=== PATIENT | female | born 1985 | race American Indian/Alaskan Native ===

== ENCOUNTER 2017-07-16 18:53 | Emergency (ER) | payer MEDICAID ==
[2017-07-16 19:01] VITALS: BP 149/84; PULSE 92; RESP 18; TEMP 98.3; O2SAT 100
[2017-07-16 19:49] LABS: BASO % 0.4 % (0.0-2.0); EOS % 0.5 % (0.0-4.0); HEMOGLOBIN 12.9 g/dL (12.0-16.0); LYMPH # 1.5 K/uL (1.0-4.3); LYMPH % 17.2 % (20.0-40.0); MEAN CELL VOLUME 90.4 fl (81.0-99.0); MEAN CORPUSCULAR HEMOGLOBIN 30.1 pg (27.0-31.0); MEAN CORPUSCULAR HGB CONC 33.3 g/dL (33.0-37.0); MEAN PLATELET VOLUME 7.8 fl (7.2-11.7); MONO # 0.6 K/uL (0.0-0.8); MONO % 6.5 % (0.0-10.0); NEUT # 6.6 K/uL (1.8-7.0); NEUT % 75.4 % (50.0-75.0); NRBC % 0.1 % (0.0-0.0); RBC 4.29 Mil/uL (3.80-5.20); RED CELL DISTRIBUTION WIDTH 14.3 % (11.5-14.5); WHITE BLOOD COUNT 8.7 K/uL (4.8-10.8)
[2017-07-16 19:50] LABS: SQUAMOUS EPITHIAL 2 /hpf (0-5); URINE BACTERIA FEW (<OCC); URINE BILIRUBIN NEGATIVE (NEGATIVE); URINE BLOOD LARGE (NEGATIVE); URINE CLARITY CLOUDY (Clear); URINE COLOR YELLOW (YELLOW); URINE GLUCOSE (UA) NEG (Normal); URINE LEUKOCYTE ESTERASE SMALL Leu/uL (Negative); URINE PROTEIN NEGATIVE (NEGATIVE); URINE UROBILINOGEN 0.2-1.0 mg/dL (0.2-1.0)
--- NOTE | 2017-07-16 20:31 | ED PDOC ---
HPI: Female Pain Time Seen by Provider: 07/16/17 19:16 Chief Complaint (Nursing): Female Genitourinary Chief Complaint (Provider): Vaginal Bleeding History Per: Patient History/Exam Limitations: no limitations Onset/Duration Of Symptoms: Days (x1 week) Current Symptoms Are (Timing): Still Present Additional Complaint(s): 31 y/o female with no significant pmhx, who presents to the ED for evaluation of vaginal bleeding in x1 week. Patient states she has been bleeding and spotting for the past week with associated abdominal cramps. Describes bleeding as light spotting and states she goes through 2 pads a day, but they are not saturated. States she was seen at [place] [facility] on 07/12/17 and told she had fibroids. A gestation sac was identified, but no cardiac activity was found. 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 . PMD: Provider TBD Past Medical History Reviewed: Historical Data, Nursing Documentation, Vital Signs Vital Signs: Last Vital Signs Temp 98.3 F 07/16/17 18:58 Pulse 92 H 07/16/17 18:58 Resp 18 07/16/17 18:58 BP 149/84 07/16/17 18:58 Pulse Ox 100 07/16/17 18:58 - Medical History PMH: No Chronic Diseases - Surgical History Surgical History: No Surg Hx - Family History Family History: States: Unknown Family Hx - Social History Current smoker - smoking cessation education provided: No Alcohol: None Drugs: Denies - Allergies Allergies/Adverse Reactions: Allergies Allergy/AdvReac Type Severity Reaction Status Date / Time No Known Allergies Allergy Verified 07/16/17 18:57 Review of Systems Gastrointestinal: Positive for: Abdominal Pain Genitourinary Female: Positive for: Vaginal Bleeding Physical Exam - Reviewed Nursing Documentation Reviewed: Yes Vital Signs Reviewed: Yes - Physical Exam Appears: Positive for: Non-toxic, No Acute Distress Head Exam: Positive for: ATRAUMATIC, NORMAL INSPECTION, NORMOCEPHALIC Skin: Positive for: Normal Color, Warm, Dry. Negative for: Rash Eye Exam: Positive for: EOMI, Normal appearance, PERRL Neck: Positive for: Normal, Painless ROM, Supple Cardiovascular/Chest: Positive for: Regular Rate, Rhythm. Negative for: Murmur Respiratory: Positive for: Normal Breath Sounds. Negative for: Respiratory Distress Gastrointestinal/Abdominal: Positive for: Normal Exam, Bowel Sounds, Soft. Negative for: Tenderness Back: Positive for: Normal Inspection. Negative for: L CVA Tenderness, R CVA Tenderness Extremity: Positive for: Normal ROM. Negative for: Pedal Edema, Deformity Neurologic/Psych: Positive for: Alert, Oriented. Negative for: Motor/Sensory Deficits - Laboratory Results Result Diagrams: 07/16/17 19:40 - ECG O2 Sat by Pulse Oximetry: 100 (RA) Pulse Ox Interpretation: Normal Medical Decision Making Medical Decision Making: Time: 19:21 Initial Impression: 31 y/o female with vaginal bleeding in Initial Plan: --ABO/RH Type --Blood Type and Screen --Beta-HCG --Urine --Urine dipstick --CBC --Urinalysis --US OB Transvaginal --Reevaluation Time: 19:23 US OB TRANSVAGINAL FINDINGS: Gestation: There is a single gestational sac in the uterus. Gestational sac has mean diameter 11.3 mm. A pole is not visible. A yolk sac is not visible. Placenta/amniotic fluid: Cannot be adequately evaluated due to the early gestational age. Uterus/cervix: Uterus measures approximately 9.5 x 5.9 x 8 cm. There are multiple subserosal fibroids. There is a 3.5 x 3 x 3.5 cm fibroid on the right. There is a 4 x 3.7 x 2.8 cm fibroid, There is a 4.3 x 3.4 x 3 cm fibroid on the right. Ovaries: Right ovary measures approximately 3.4 x 3 by 2.9 cm. There is a corpus luteum the right ovary. There are small follicles. Left ovary could not be identified. Free fluid: No free fluid. IMPRESSION: Gestational sac in the uterus, 5 weeks 2 days by size, pole and yolk sac not visible; enlarged fibroid uterus; probable right ovarian corpus luteum Correlation with serial beta-hCG levels and follow up sonography advised to document development of a pole Time: 23:14 Labs reviewed and no clinically significant abnormalities were found. Patient was advised that she will be required to follow up with OB. [facility] to [facility] [employer] [facility]. Pelvic rest advised. Return precautions provided. Scribe Attestation: Documented by Etienne Reeves, acting as a scribe for Prabhjot Lai MD. Provider Scribe Attestation: All medical record entries made by the Scribe were at my direction and personally dictated by me. I have reviewed the chart and agree that the record accurately reflects my personal performance of the history, physical exam, medical decision making, and the department course for this patient. I have also personally directed, reviewed, and agree with the discharge instructions and disposition. Disposition - Clinical Impression Clinical Impression: Threatened miscarriage in early - Patient ED Disposition Is Patient to be Admitted: No Counseled Patient/Family Regarding: Studies Performed, Diagnosis, Need For Followup - Disposition [facility]errals[facility]] Disposition Time: 23:14 Condition: STABLE Instructions: Threatened Miscarriage Forms: [employer] (Japanese), [facility] ED School/Work Excuse
--- NOTE | 2017-07-16 21:51 | US ---
EXAM: US , Transvaginal EXAM DATE/TIME: 07/16/2017 7:23 PM CLINICAL HISTORY: 31 years old, female; Pain; complicated by abdominal or pelvic pain; Lower; First trimester; LMP: 05/27/17; ; Additional info: Preg vag bld TECHNIQUE: Real-time transvaginal obstetrical ultrasound of the maternal pelvis and a first trimester with image documentation. Transvaginal imaging was used for better evaluation of the fetus and adnexa. COMPARISON: There are no prior studies for comparison. FINDINGS: Gestation: There is a single gestational sac in the uterus. Gestational sac has mean diameter 11.3 mm. A pole is not visible. A yolk sac is not visible. Placenta/amniotic fluid: Cannot be adequately evaluated due to the early gestational age. Uterus/cervix: Uterus measures approximately 9.5 x 5.9 x 8 cm. There are multiple subserosal fibroids. There is a 3.5 x 3 x 3.5 cm fibroid on the right. There is a 4 x 3.7 x 2.8 cm fibroid, There is a 4.3 x 3.4 x 3 cm fibroid on the right. Ovaries: Right ovary measures approximately 3.4 x 3 by 2.9 cm. There is a corpus luteum the right ovary. There are small follicles. Left ovary could not be identified. Free fluid: No free fluid. IMPRESSION: Gestational sac in the uterus, 5 weeks 2 days by size, pole and yolk sac not visible; enlarged fibroid uterus; probable right ovarian corpus luteum Correlation with serial beta-hCG levels and follow up sonography advised to document development of a pole
== END 2017-07-16 23:33 | disposition home or self-care (01) ==
LOC: H.ER 18:53
DX: O20.0 Threatened abortion (principal); D25.2 Subserosal leiomyoma of uterus

== ENCOUNTER 2017-07-23 16:25 | Emergency (ER) | payer MEDICAID ==
[2017-07-23 16:35] VITALS: BP 110/58; PULSE 88; RESP 16; O2SAT 100
[2017-07-23 16:53] VITALS: TEMP 98.4
--- NOTE | 2017-07-23 17:04 | ED PDOC ---
HPI: Female Pain Time Seen by Provider: 07/23/17 16:51 Chief Complaint (Nursing): Female Genitourinary Chief Complaint (Provider): Vaginal bleeding History Per: Patient History/Exam Limitations: no limitations Onset/Duration Of Symptoms: Days (x2 weeks) Current Symptoms Are (Timing): Still Present Quality Of Discomfort: Cramping Associated Symptoms: denies: Nausea, Vomiting, Diarrhea, Chest Pain, Urinary Symptoms, Other (SOB) Additional Complaint(s): Ashley Douglas is a 31 year old female, with no significant past medical history, who presents to the emergency department complaining of vaginal bleeding and crampy lower pelvic pain onset for x2 weeks. Patient states she is about x8 weeks . She was seen in the ED last week for threatened miscarriage. Patient scheduled an appointment with [facility] [facility], Dr. Guerra at [place], but was advised to come to the ED because the doctor is not able to see her soon. She denies any nausea, vomit, diarrhea, urinary symptoms, chest pain or shortness of breath. No further medical complaints. Took motrin for the pain. PMD: Shweta Guerra Abnormal Vaginal Bleeding: Yes Past Medical History Reviewed: Historical Data, Nursing Documentation, Vital Signs Vital Signs: Last Vital Signs Temp 98.4 F 07/23/17 16:30 Pulse 88 07/23/17 16:30 Resp 16 07/23/17 16:30 BP 110/58 L 07/23/17 16:30 Pulse Ox 100 07/23/17 16:30 - Medical History PMH: No Chronic Diseases - Surgical History Surgical History: No Surg Hx - Family History Family History: States: Unknown Family Hx - Allergies Allergies/Adverse Reactions: Allergies Allergy/AdvReac Type Severity Reaction Status Date / Time No Known Allergies Allergy Verified 07/23/17 16:30 Review of Systems ROS Statement: Except As Marked, All Systems Reviewed And Found Negative Cardiovascular: Negative for: Chest Pain Respiratory: Negative for: Shortness of Breath Gastrointestinal: Negative for: Nausea, Vomiting, Diarrhea Genitourinary Female: Positive for: Vaginal Bleeding, Pelvic Pain. Negative for : Dysuria, Frequency, Incontinence Physical Exam - Reviewed Nursing Documentation Reviewed: Yes Vital Signs Reviewed: Yes - Physical Exam Appears: Positive for: Well, Non-toxic, No Acute Distress Head Exam: Positive for: ATRAUMATIC, NORMAL INSPECTION, NORMOCEPHALIC Skin: Positive for: Normal Color, Warm, Dry Eye Exam: Positive for: Normal appearance Neck: Positive for: Painless ROM, Supple Cardiovascular/Chest: Positive for: Regular Rate, Rhythm. Negative for: Murmur Respiratory: Positive for: Normal Breath Sounds (clear to auscultation). Negative for: Respiratory Distress Gastrointestinal/Abdominal: Positive for: Soft, Tenderness (mild suprapubic) Back: Positive for: Normal Inspection. Negative for: L CVA Tenderness, R CVA Tenderness, Vertebral Tenderness Extremity: Positive for: Normal ROM (all extremities). Negative for: Tenderness , Deformity, Swelling Neurologic/Psych: Positive for: Alert, Oriented. Negative for: Motor/Sensory Deficits - Laboratory Results Result Diagrams: 07/23/17 17:09 07/23/17 17:09 Interpretation Of Abn Labs: 5920.4 bhcg and ast and alt mild elevation - ECG O2 Sat by Pulse Oximetry: 100 (RA) Pulse Ox Interpretation: Normal - CT Scan/US US Other Rad Studies (CT/US): Read By Radiologist Other Rad Interpretation: possible miscarriage - Progress ED Course And Treament: 1829: Stable. AAOx3. Pain controlled. Possible miscarriage. BHCG dropping but not in 1/2. Pt. to fu to trend levels and repeat US. Has obgyn. Medical Decision Making Medical Decision Making: Initial Impression: Vaginal bleeding in Initial Plan: --Beta-HCG, Quantitative --CMP --Urine dip --Urine --CBC w/ differential --OB Transvaginal [US] --Reevaluation Scribe Attestation: Documented by Ang Hale, acting as a scribe for Enoch Gao MD Provider Scribe Attestation: All medical record entries made by the Scribe were at my direction and personally dictated by me. I have reviewed the chart and agree that the record accurately reflects my personal performance of the history, physical exam, medical decision making, and the department course for this patient. I have also personally directed, reviewed, and agree with the discharge instructions and disposition. Disposition - Clinical Impression Clinical Impression: Threatened miscarriage, Elevated liver enzymes - Patient ED Disposition Is Patient to be Admitted: No Counseled Patient/Family Regarding: Studies Performed, Diagnosis, Need For Followup - Disposition [facility] - 07/24/17 [facility] [Outside] - 07/24/17 Disposition: Routine/Home Disposition Time: 18:31 Condition: STABLE Additional Instructions: Return if not better in 3 days. See the obgyn in 3 days for repeat blood work and ultrasound. You could be having a miscarriage. Your liver enzymes are slightly elevated. Follow up with your primary care doctor for further evaluation. Instructions: Threatened Miscarriage Forms: [employer] (Greek)
[2017-07-23 17:52] LABS: BASO # 0.1 K/uL (0.0-0.2); BASO % 1.1 % (0.0-2.0); EOS # 0.1 K/uL (0.0-0.7); EOS % 1.1 % (0.0-4.0); HEMOGLOBIN 11.7 g/dL (12.0-16.0); LYMPH % 28.2 % (20.0-40.0); MEAN CELL VOLUME 91.6 fl (81.0-99.0); MEAN CORPUSCULAR HEMOGLOBIN 30.2 pg (27.0-31.0); MEAN PLATELET VOLUME 8.2 fl (7.2-11.7); MONO # 0.9 K/uL (0.0-0.8); MONO % 8.8 % (0.0-10.0); NEUT # 6.4 K/uL (1.8-7.0); NEUT % 60.8 % (50.0-75.0); RBC 3.85 Mil/uL (3.80-5.20); RED CELL DISTRIBUTION WIDTH 14.1 % (11.5-14.5); WHITE BLOOD COUNT 10.5 K/uL (4.8-10.8)
[2017-07-23 18:02] LABS: ALB/GLOB RATIO 1.1 (1.0-2.1); ALT/SGPT 64 U/L (9-52); AST/SGOT 45 U/L (14-36); BLOOD UREA NITROGEN 12 mg/dl (7-17); CALCIUM 9.3 mg/dL (8.4-10.2); GFR AFRICAN-AMERICAN > 60; GFR NON-AFRICAN AMERICAN > 60
--- NOTE | 2017-07-23 18:16 | US ---
HISTORY: preg and pain COMPARISON: None available. TECHNIQUE: Transvaginal pelvic ultrasound was performed. FINDINGS: UTERUS: Measures 9.0 x 5.5 x 7.4 cm. Anteverted and bulky. There are 3 intramural fibroids, the largest posterior wall fibroid measures 4.9 x 3.5 x 2.6 cm. There is a gestational sac in the lower uterine segment with mean sac diameter of 1.17 cm corresponding to 5 weeks and 2 days of gestational age. Yolk sac and pole are not visualized. ENDOMETRIUM: Measures 3.0 mm in diameter. Unremarkable. CERVIX: The cervical length measures 3.1 cm. RIGHT OVARY: Measures 3.7 x 2.6 x 2.5 cm. No solid mass. Normal flow. LEFT OVARY: Not visualized. FREE FLUID: No significant free fluid noted. OTHER FINDINGS: None. IMPRESSION: Single gestational sac in the lower uterine segment with mean gestational age of 5 weeks and 2 days. Yolk sac and pole are not visualized. Findings are most compatible with in progress.
== END 2017-07-23 18:47 | disposition home or self-care (01) ==
LOC: H.ER 16:25
DX: O20.0 Threatened abortion (principal); Z3A.01 Less than 8 weeks gestation of pregnancy; O14.20 HELLP syndrome (HELLP), unspecified trimester